=== PATIENT | female | born 1960 | race Hispanic/Latino ===

== ENCOUNTER 2019-09-19 13:11 | Outpatient (CLI) | payer MEDICARE ==
--- NOTE | 2019-09-19 16:38 | Magnetic Resonance Report ---
MR LE nonjoint LT wo con INDICATION / CLINICAL INFORMATION: DIABETES MELLINTUS WITHOUT COMPLICATIONS. TECHNIQUE: Multiplanar, multisequence MR images were obtained. Routine MRI of the left foreleg without IV contra st. COMPARISON: None available. FINDINGS: There is some subcutaneous edema involving the cutaneous and subcutaneous structures of the posterior mid left foreleg. No underlying drainable fluid collection is identified within the limits of noncon trast technique. No abnormal marrow signal identified within the visualized tibia or fibula. IMPRESSION: Moderate cellulitis type signal within the posterior foreleg without underlying drainable fluid colle ction. No evidence of osteomyelitis at this time. Signer Name: Price Nassar MD Signed: 09/19/2019 4:33 PM Workstation Name: [id number]
== END 2019-09-19 13:12 | disposition home or self-care (01) ==
LOC: MRI 13:11
PROVIDERS: ATTEND Internal Medicine Hematology & Oncology
DX: L03.116 Cellulitis of left lower limb (principal); D50.8 Other iron deficiency anemias; E11.9 Type 2 diabetes mellitus without complications
CPT/HCPCS: 36415; 82565; 84520

== ENCOUNTER 2020-08-27 13:22 | Outpatient (CLI) | payer MEDICARE ==
--- NOTE | 2020-08-27 17:33 | Mammography Report ---
DIGITAL SCREENING MAMMOGRAM WITH CAD, 08/27/2020 CLINICAL INFORMATION / INDICATION: Routine screening mammography. TECHNIQUE: Digital bilateral 2D mammography was obtained in the craniocaudal and mediolateral obliqu e projections. This examination was interpreted with the benefit of Computer-Aided Detection analysis . COMPARISON: None available. FINDINGS: Breast Density: The breasts are almost entirely fatty. No dominant mass, suspicious calcifications, or architectural distortion in either breast. IMPRESSION: No mammographic evidence of malignancy. Follow up recommendation: Routine yearly BI-RADS Category 1: Negative. A "normal" or negative report should not discourage follow up or biopsy of a clinically significant f inding. A written summary of these findings will be mailed to the patient. The patient will be entered into a mammography reporting system which will generate a reminder letter for the patient's next appointmen t at the appropriate interval. The [employer] recommends yearly mammograms starting at age 40 and continuing as l isabella as a woman is in good health. Breast MRI is recommended for women with an approximate 20-25% or greater lifetime risk of breast cancer, including women with a strong family history of breast or ova sara cancer or who have been treated for Hodgkin's disease. Signer Name: Neisha Daniel MD Signed: 08/27/2020 5:28 PM Workstation Name: [id number]
== END 2020-08-27 13:23 | disposition home or self-care (01) ==
LOC: MAMMO 13:22
PROVIDERS: ATTEND Internal Medicine Hematology & Oncology
DX: Z12.31 Encounter for screening mammogram for malignant neoplasm of breast (principal)
CPT/HCPCS: 77067

== ENCOUNTER 2021-09-17 18:24 | Emergency (ER) | payer MEDICARE ==
[2021-09-17 20:42] VITALS: BP 118/51
[2021-09-17] MEDS ORDERED: SODIUM CHLORIDE IRRI 500 ML 500 ML IR ONE (20:48)
--- NOTE | 2021-09-17 21:04 | Emergency Department Report ---
ED General Adult HPI - General Chief complaint: Weakness Stated complaint: POST OP COMPLICATIONS/BLEEDING Time Seen by Provider: 09/17/21 18:45 Source: patient Mode of arrival: Ambulatory Limitations: No Limitations - History of Present Illness Initial comments: pt presents to ed with complaint of post op bleeding from right leg pt has injection to her VV this am, tried to call her doctor but no answer, no blood thinner -: Sudden, hour(s) Location: lower extremity Radiation: non-radiation Severity scale (0 -10): 0 Treatments Prior to Arrival: none - Related Data Home Medications Medication Instructions Recorded Confirmed Last Taken Esomeprazole Magnesium [Nexium] 40 mg PO QDAY 06/29/14 07/10/14 06/28/14 Levothyroxine [Synthroid] 75 mcg PO DAILY 06/29/14 07/10/14 06/28/14 Lurasidone HCl [Latuda] 40 mg PO DAILY 06/29/14 07/10/14 06/28/14 Quinapril HCl 40 mg PO DAILY 06/29/14 07/10/14 06/28/14 Sertraline [Zoloft] 200 mg PO QDAY 06/29/14 07/10/14 06/28/14 Sitagliptin Phos/Metformin HCl 1 tab PO BID 06/29/14 07/10/14 06/28/14 [Janumet 50-500 mg Tablet] allopurinoL [Zyloprim] 300 mg PO DAILY 06/29/14 07/10/14 06/28/14 glyBURIDE [Diabeta] 10 mg PO DAILY 06/29/14 07/10/14 06/28/14 lamoTRIgine [Lamotrigine ER] 300 mg PO DAILY 06/29/14 07/10/14 06/28/14 Allergies Allergy/AdvReac Type Severity Reaction Status Date / Time amoxicillin Allergy Rash Verified 06/29/14 11:42 celecoxib [From Celebrex] Allergy Rash Verified 06/29/14 11:42 fentanyl Allergy Rash Verified 06/29/14 11:42 mepivacaine HCl Allergy RAPID Verified 06/29/14 11:42 [From Carbocaine] HEART RATE,PASS OUT morphine Allergy Rash Verified 06/29/14 11:42 Sulfa (Sulfonamide Allergy Rash Verified 06/29/14 11:42 Antibiotics) terbinafine HCl Allergy Rash Verified 06/29/14 11:42 [From Lamisil] tetracycline Allergy Rash Verified 06/29/14 11:42 permethrin AdvReac SHORTNESS Verified 06/29/14 11:42 OF BREATH,RASH,HIVES ED Review of Systems ROS: Stated complaint: POST OP COMPLICATIONS/BLEEDING Other details as noted in HPI Constitutional: denies: chills, fever Eyes: denies: eye pain, eye discharge, vision change ENT: denies: ear pain, throat pain Respiratory: denies: cough, shortness of breath, wheezing Cardiovascular: denies: chest pain, palpitations Endocrine: no symptoms reported Gastrointestinal: denies: abdominal pain, nausea, diarrhea Genitourinary: denies: urgency, dysuria, discharge Musculoskeletal: denies: back pain, joint swelling, arthralgia Skin: denies: rash, lesions Neurological: denies: headache, weakness, paresthesias Psychiatric: denies: anxiety, depression Hematological/Lymphatic: denies: easy bleeding, easy bruising ED Past Medical Hx - Past Medical History Hx Hypertension: Yes Hx Heart Attack/AMI: Yes Hx Diabetes: Yes (2002) Hx Pulmonary Embolism: Yes Hx GERD: Yes Hx Renal Disease: Yes (kidney stones) Hx Arthritis: Yes (CHRISTOFER KNEES) Hx Kidney Stones: Yes (HX MULTIPLE KIDNEY STONES) Hx Psychiatric Treatment: Yes (bipolar) - Surgical History Hx Cholecystectomy: Yes (2001) Hx Appendectomy: Yes Additional Surgical History: gastric sleeve - Social History Smoking Status: Never Smoker Substance Use Type: None - Medications Home Medications: Home Medications Medication Instructions Recorded Confirmed Last Taken Type Esomeprazole Magnesium [Nexium] 40 mg PO QDAY 06/29/14 07/10/14 06/28/14 History Levothyroxine [Synthroid] 75 mcg PO DAILY 06/29/14 07/10/14 06/28/14 History Lurasidone HCl [Latuda] 40 mg PO DAILY 06/29/14 07/10/14 06/28/14 History Quinapril HCl 40 mg PO DAILY 06/29/14 07/10/14 06/28/14 History Sertraline [Zoloft] 200 mg PO QDAY 06/29/14 07/10/14 06/28/14 History Sitagliptin Phos/Metformin HCl 1 tab PO BID 06/29/14 07/10/14 06/28/14 History [Janumet 50-500 mg Tablet] allopurinoL [Zyloprim] 300 mg PO DAILY 06/29/14 07/10/14 06/28/14 History glyBURIDE [Diabeta] 10 mg PO DAILY 06/29/14 07/10/14 06/28/14 History lamoTRIgine [Lamotrigine ER] 300 mg PO DAILY 06/29/14 07/10/14 06/28/14 History ED Physical Exam - General Limitations: No Limitations General appearance: alert, in no apparent distress - Head Head exam: Present: atraumatic, normocephalic - Eye Eye exam: Present: normal appearance - ENT ENT exam: Present: mucous membranes moist - Neck Neck exam: Present: normal inspection - Respiratory Respiratory exam: Present: normal lung sounds bilaterally. Absent: respiratory distress - Cardiovascular Cardiovascular Exam: Present: regular rate, normal rhythm. Absent: systolic murmur, diastolic murmur, rubs, gallop - GI/Abdominal GI/Abdominal exam: Present: soft, normal bowel sounds - Extremities Exam Extremities exam: Present: normal inspection - Expanded Lower Extremity Exam Right Lower Leg exam: Present: erythema (bleeding from VV injection site ) - Back Exam Back exam: Present: normal inspection - Neurological Exam Neurological exam: Present: alert, oriented X3 - Psychiatric Psychiatric exam: Present: normal affect, normal mood - Skin Skin exam: Present: warm, dry, intact, normal color. Absent: rash ED Course Vital Signs 09/17/21 09/17/21 09/17/21 18:40 19:58 20:00 Temperature 98.8 F Pulse Rate 76 Respiratory 18 Rate Blood Pressure 104/61 100/47 Blood Pressure [Left] O2 Sat by Pulse 94 99 99 Oximetry 09/17/21 09/17/21 09/17/21 20:02 20:16 20:30 Temperature 97.9 F Pulse Rate 66 Respiratory 19 Rate Blood Pressure 98/46 118/51 Blood Pressure 104/60 [Left] O2 Sat by Pulse 100 98 98 Oximetry 09/17/21 20:44 Temperature Pulse Rate Respiratory 17 Rate Blood Pressure Blood Pressure [Left] O2 Sat by Pulse 100 Oximetry - Reevaluation(s) Reevaluation #1: 09/17/21 21:03 bleeding controlled , glued and dressed observed for 3 hours , no bleeding able to ambulate Critical care attestation.: If time is entered above; I have spent that time in minutes in the direct care of this critically ill patient, excluding procedure time. ED Disposition Clinical Impression: Post-op bleeding Disposition: HOME / SELF CARE / HOMELESS Is pt being admited?: No Does the pt Need Aspirin: No Condition: Stable Instructions: Varicose Veins Additional Instructions: elevate your leg today and call ur doc tomorrow am
== END 2021-09-17 21:34 | disposition home or self-care (01) ==
LOC: ED 18:24
DX: L76.22 Postprocedural hemorrhage of skin and subcutaneous tissue following other procedure (principal); E11.9 Type 2 diabetes mellitus without complications; Z86.73 Personal history of transient ischemic attack (TIA), and cerebral infarction without residual deficits; K21.9 Gastro-esophageal reflux disease without esophagitis; I26.99 Other pulmonary embolism without acute cor pulmonale; Z88.1 Allergy status to other antibiotic agents; Z88.8 Allergy status to other drugs, medicaments and biological substances; Z88.2 Allergy status to sulfonamides
CPT/HCPCS: 99282

== ENCOUNTER 2021-09-18 13:38 | Emergency (ER) | payer MEDICARE ==
--- NOTE | 2021-09-18 16:08 | Vascular Lab Report ---
DUPLEX DOPPLER LOWER EXTREMITY VEINS, RIGHT INDICATION: sp procedure , swelling and numbness. TECHNIQUE: Duplex doppler imaging was performed through the veins of the right lower extremity using venous comp ression and other maneuvers. COMPARISON: No relevant prior imaging study available. FINDINGS: Right Common femoral vein: Negative. Right Superficial femoral vein: Negative. Right Popliteal vein: Negative. Right Calf veins: Negative. Additional findings: None.. IMPRESSION: 1. No sonographic evidence for DVT in the right lower extremity. Signer Name: Zev Serrano MD Signed: 09/18/2021 4:04 PM Workstation Name: [id number]
--- NOTE | 2021-09-18 16:31 | XRay Report ---
LEFT RIBS 4 VIEWS INDICATION: chest pain rib nehemiah after fall. COMPARISON: None. IMPRESSION: No displaced left rib fracture is detected on x-ray. The left lung is well-aerated. Signer Name: Palmer Victoria Jr, MD Signed: 09/18/2021 4:26 PM Workstation Name: [id number]
[2021-09-18 17:17] LABS: Basophils % (Auto) 0.4 % (0.0-1.8); Hematocrit 31.8 % (30.3-42.9); Mean Corpuscular HGB Conc 35 % (30-34); Mean Corpuscular Volume 97 fl (79-97); Monocytes # (Auto) 0.4 K/mm3 (0.0-0.8); Monocytes % (Auto) 6.1 % (0.0-7.3); Platelet Count 194 K/mm3 (140-440); Red Blood Count 3.28 M/mm3 (3.65-5.03); Red Cell Distribution Width 14.1 % (13.2-15.2)
[2021-09-18 17:36] LABS: Alanine Aminotransferase 14 units/L (7-56); Albumin 3.9 g/dL (3.9-5)
[2021-09-18 17:37] LABS: Calcium 9.2 mg/dL (8.4-10.2)
[2021-09-18 17:39] LABS: Bilirubin,Direct < 0.2 mg/dL (0-0.2)
--- NOTE | 2021-09-18 18:07 | Emergency Department Report ---
ED General Adult HPI - General Chief complaint: Fall Stated complaint: POSS BROKEN RIB Time Seen by Provider: 09/18/21 14:56 Source: patient Mode of arrival: Ambulatory Limitations: No Limitations - History of Present Illness Severity scale (0 -10): 9 - Related Data Home Medications Medication Instructions Recorded Confirmed Last Taken Esomeprazole Magnesium [Nexium] 40 mg PO QDAY 06/29/14 07/10/14 06/28/14 Levothyroxine [Synthroid] 75 mcg PO DAILY 06/29/14 07/10/14 06/28/14 Lurasidone HCl [Latuda] 40 mg PO DAILY 06/29/14 07/10/14 06/28/14 Quinapril HCl 40 mg PO DAILY 06/29/14 07/10/14 06/28/14 Sertraline [Zoloft] 200 mg PO QDAY 06/29/14 07/10/14 06/28/14 Sitagliptin Phos/Metformin HCl 1 tab PO BID 06/29/14 07/10/14 06/28/14 [Janumet 50-500 mg Tablet] allopurinoL [Zyloprim] 300 mg PO DAILY 06/29/14 07/10/14 06/28/14 glyBURIDE [Diabeta] 10 mg PO DAILY 06/29/14 07/10/14 06/28/14 lamoTRIgine [Lamotrigine ER] 300 mg PO DAILY 06/29/14 07/10/14 06/28/14 Allergies Allergy/AdvReac Type Severity Reaction Status Date / Time amoxicillin Allergy Rash Verified 06/29/14 11:42 celecoxib [From Celebrex] Allergy Rash Verified 06/29/14 11:42 fentanyl Allergy Rash Verified 06/29/14 11:42 mepivacaine HCl Allergy RAPID Verified 06/29/14 11:42 [From Carbocaine] HEART RATE,PASS OUT morphine Allergy Rash Verified 06/29/14 11:42 Sulfa (Sulfonamide Allergy Rash Verified 06/29/14 11:42 Antibiotics) terbinafine HCl Allergy Rash Verified 06/29/14 11:42 [From Lamisil] tetracycline Allergy Rash Verified 06/29/14 11:42 permethrin AdvReac SHORTNESS Verified 06/29/14 11:42 OF BREATH,RASH,HIVES ED Review of Systems ROS: Stated complaint: POSS BROKEN RIB Other details as noted in HPI Comment: All other systems reviewed and negative ED Past Medical Hx - Past Medical History Hx Hypertension: Yes Hx Heart Attack/AMI: Yes Hx Diabetes: Yes (2002) Hx Pulmonary Embolism: Yes Hx GERD: Yes Hx Renal Disease: Yes (kidney stones) Hx Arthritis: Yes (CHRISTOFER KNEES) Hx Kidney Stones: Yes (HX MULTIPLE KIDNEY STONES) Hx Psychiatric Treatment: Yes (bipolar) - Surgical History Hx Cholecystectomy: Yes (2001) Hx Appendectomy: Yes Additional Surgical History: gastric sleeve - Social History Smoking Status: Never Smoker Substance Use Type: None - Medications Home Medications: Home Medications Medication Instructions Recorded Confirmed Last Taken Type Esomeprazole Magnesium [Nexium] 40 mg PO QDAY 06/29/14 07/10/14 06/28/14 History Levothyroxine [Synthroid] 75 mcg PO DAILY 06/29/14 07/10/14 06/28/14 History Lurasidone HCl [Latuda] 40 mg PO DAILY 06/29/14 07/10/14 06/28/14 History Quinapril HCl 40 mg PO DAILY 06/29/14 07/10/14 06/28/14 History Sertraline [Zoloft] 200 mg PO QDAY 06/29/14 07/10/14 06/28/14 History Sitagliptin Phos/Metformin HCl 1 tab PO BID 06/29/14 07/10/14 06/28/14 History [Janumet 50-500 mg Tablet] allopurinoL [Zyloprim] 300 mg PO DAILY 06/29/14 07/10/14 06/28/14 History glyBURIDE [Diabeta] 10 mg PO DAILY 06/29/14 07/10/14 06/28/14 History lamoTRIgine [Lamotrigine ER] 300 mg PO DAILY 06/29/14 07/10/14 06/28/14 History ED Physical Exam - General Limitations: No Limitations General appearance: alert, in no apparent distress - Head Head exam: Present: atraumatic, normocephalic - Eye Eye exam: Present: normal appearance, PERRL, EOMI Pupils: Present: normal accommodation - ENT ENT exam: Present: normal exam, normal orophraynx, mucous membranes moist, TM's normal bilaterally - Neck Neck exam: Present: normal inspection, full ROM - Respiratory Respiratory exam: Present: normal lung sounds bilaterally, chest wall tenderness (Left rib region with palpation. No crepitus no step-off). Absent: respiratory distress, wheezes, rales, decreased breath sounds, prolonged expiratory - Cardiovascular Cardiovascular Exam: Present: regular rate, normal rhythm. Absent: systolic murmur, diastolic murmur, rubs, gallop - GI/Abdominal GI/Abdominal exam: Present: soft, normal bowel sounds - Extremities Exam Extremities exam: Present: normal inspection - Back Exam Back exam: Present: normal inspection - Neurological Exam Neurological exam: Present: alert, oriented X3 - Psychiatric Psychiatric exam: Present: normal affect, normal mood - Skin Skin exam: Present: warm, dry, intact, normal color. Absent: rash ED Course Vital Signs 09/18/21 14:43 Temperature 98.3 F Pulse Rate 58 L Respiratory 18 Rate Blood Pressure 127/76 [Right] O2 Sat by Pulse 99 Oximetry ED Medical Decision Making - Lab Data Result diagrams: 09/18/21 16:47 09/18/21 16:47 - Radiology Data Radiology results: report reviewed [address] [address] XRay Report Signed Patient: SAM SCOTT MR#: [id number] : 1960 Acct:[id number] Age/Sex: 60 / F ADM Date: 09/18/21 Loc: ED Attending Dr: Ordering Physician: AUGUSTUS MELCHOR Date of Service: 09/18/21 Procedure(s): XR ribs UNI w PA chest 3+V LT Accession Number(s): [id number] cc: AUGUSTUS MELCHOR Fluoro Time In Minutes: LEFT RIBS 4 VIEWS INDICATION: chest pain rib nehemiah after fall. COMPARISON: None. IMPRESSION: No displaced left rib fracture is detected on x-ray. The left lung is well-aerated. Signer Name: Palmer Victoria Jr, MD Signed: 09/18/2021 4:26 PM Workstation Name: [id number] Transcribed By: TTR Dictated By: PALMER VICTORIA JR, MD Electronically Authenticated By: PALMER VICTORIA JR, MD Signed Date/Time: 09/18/211625 DD/ 24 TD/TT: [address] [address] Vascular Lab Report Signed Patient: SAM SCOTT MR#: [id number] : 1960 Acct:[id number] Age/Sex: 60 / F ADM Date: 09/18/21 Loc: ED Attending Dr: Ordering Physician: AUGUSTUS MELCHOR Date of Service: 09/18/21 Procedure(s): VL venous duplex LE RT Accession Number(s): [id number] cc: AUGUSTUS MELCHOR DUPLEX DOPPLER LOWER EXTREMITY VEINS, RIGHT INDICATION: sp procedure , swelling and numbness. TECHNIQUE: Duplex doppler imaging was performed through the veins of the right lower extremity using venous compression and other maneuvers. COMPARISON: No relevant prior imaging study available. FINDINGS: Right Common femoral vein: Negative. Right Superficial femoral vein: Negative. Right Popliteal vein: Negative. Right Calf veins: Negative. Additional findings: None.. IMPRESSION: 1. No sonographic evidence for DVT in the right lower extremity. Signer Name: Zev Serrano MD Signed: 09/18/2021 4:04 PM Workstation Name: [id number] Transcribed By: KYM Dictated By: Zev Serrano MD Electronically Authenticated By: Zev Serrano MD Signed Date/Time: 09/18/211603 DD/ 03 TD/TT: Print Cancel - Medical Decision Making 60-year-old female with elevated BMI and chronic kidney disease presents emerged department complaining of left rib pain status post fall, where she was getting up to be going to the bathroom and experienced some weakness in her right leg due to the numbness experience after a vein procedure she received a few days ago. She fell onto her left side causing pain to her left rib which may contact with the ground and it took her about 10 hours to get off the ground after which she immediately came to emergency department. X-ray showed no evidence of any rib fractures and no ultrasound showed no evidence of any DVTs. Discussed with Ms. Scott. Pain control but she opted out of pain control stated she would do the pain due to only make sure she did not overstress her kidneys. She is advised to follow-up with her primary care provider and keep the appointment she has with her doctor return tomorrow and advised him of the findings electroplating emergency department today Critical care attestation.: If time is entered above; I have spent that time in minutes in the direct care of this critically ill patient, excluding procedure time. ED Disposition Clinical Impression: Contusion of rib on left side Disposition: HOME / SELF CARE / HOMELESS Is pt being admited?: No Does the pt Need Aspirin: No Condition: Stable Instructions: How to Use Cold Therapy, [id number], How to Use Cold Therapy, Contusion, Rib Contusion Referrals: PRIMARY CARE,MD [Primary Care Provider] - 24 Hours (Acute department department care doctor tomorrow and let them of your hospital visit and the findings on-year-old ultrasound and chest x-ray. Utilize ice for comfort as well as Tylenol.)
[2021-09-18 18:36] VITALS: BP 130/70
--- NOTE | 2021-09-19 10:25 | Electrocardiograph Report ---
[facility] Test Date: 2021-09-18 Test Time: 15:16:40 Pat Name: SAM SCOTT Department: Room: Gender: F [employer]: TYLER : 1960 Requested By: LEX BELTRÁN Order Number: [id number] Reading MD: Luis Carlos Holliday Measurements Intervals Raven Rate: 61 P: 14 SD: 197 QRS: -13 QRSD: 89 T: 24 QT: 425 QTc: 428 Interpretive Statements Sinus rhythm Inferior infarct, old No previous ECG available for comparison Electronically Signed On 09-19-2021 10:25:26 EST by Luis Carlos Holliday
== END 2021-09-18 18:36 | disposition home or self-care (01) ==
LOC: ED 13:38
DX: S20.212A Contusion of left front wall of thorax, initial encounter (principal); I10 Essential (primary) hypertension; E11.9 Type 2 diabetes mellitus without complications; K21.9 Gastro-esophageal reflux disease without esophagitis; I26.99 Other pulmonary embolism without acute cor pulmonale; N20.0 Calculus of kidney; Z86.73 Personal history of transient ischemic attack (TIA), and cerebral infarction without residual deficits; M19.90 Unspecified osteoarthritis, unspecified site; F31.9 Bipolar disorder, unspecified; Z90.49 Acquired absence of other specified parts of digestive tract; Z88.1 Allergy status to other antibiotic agents; Z88.2 Allergy status to sulfonamides; Z91.09 Other allergy status, other than to drugs and biological substances; W19.XXXA Unspecified fall, initial encounter; Y93.9 Activity, unspecified; Y92.89 Other specified places as the place of occurrence of the external cause; Y99.8 Other external cause status
CPT/HCPCS: 36415; 80048; 80076; 82550; 85025; 93005; 93010; 99284